=== PATIENT | female | born 1945 ===

== ENCOUNTER 2017-06-19 10:21 | Outpatient (CLI) | payer OTHER ==
[~2017-06-19] VITALS: Ht 152.4 cm; Wt 59.0 kg
== END 2017-06-19 10:40 | disposition home or self-care (01) ==
LOC: EDBD 10:21 → OFIC 805 10:21
DX: J31.0 Chronic rhinitis (principal); H90.3 Sensorineural hearing loss, bilateral; H61.23 Impacted cerumen, bilateral; H92.02 Otalgia, left ear; J35.8 Other chronic diseases of tonsils and adenoids

== ENCOUNTER 2017-06-19 11:34 | Outpatient (CLI) | payer OTHER | END 2017-06-19 15:00 | disposition home or self-care (01) | LOC: TOM 11:34 | DX: J32.8 Other chronic sinusitis (principal); R05 Cough; J35.9 Chronic disease of tonsils and adenoids, unspecified ==

== ENCOUNTER 2017-07-03 07:54 | Outpatient (CLI) | payer OTHER ==
[~2017-07-03] VITALS: Ht 152.4 cm; Wt 59.0 kg
== END 2017-07-03 08:10 | disposition home or self-care (01) ==
LOC: OFIC 805 07:54
DX: R04.0 Epistaxis (principal); H90.3 Sensorineural hearing loss, bilateral; J31.0 Chronic rhinitis

== ENCOUNTER 2017-07-10 08:04 | Outpatient (CLI) | payer OTHER ==
[~2017-07-10] VITALS: Ht 160 cm; Wt 59.0 kg
== END 2017-07-10 08:20 | disposition home or self-care (01) ==
LOC: OFIC 805 08:04
DX: R04.0 Epistaxis (principal); R22.0 Localized swelling, mass and lump, head